=== PATIENT | female | born 2000 | race Hispanic/Latino ===

== ENCOUNTER 2022-05-28 07:40 | Inpatient (IN) | payer OTHER ==
[2022-05-28] MEDS ORDERED: Lidocaine 1% (PF) 30 ML VIAL SC PRN (08:33)
[2022-05-28] MEDS ORDERED: NS w/ Oxytocin 30 units 500 ML ONE (08:33)
[2022-05-28] MEDS ORDERED: Butorphanol Tartrate 1 MG/ML VIAL SLOW IVP PRN (08:33)
[2022-05-28] MEDS ORDERED: HYDROcodone/Acetaminophen 5/325 mg Tablet PO PRN ×2 (08:33)
[2022-05-28] MEDS ORDERED: Methylergonovine 0.2 MG/ML VIAL IM PRN ×2 (08:33→20:57)
[2022-05-28] MEDS ORDERED: Ibuprofen 800 MG TAB PO PRN (08:33)
[2022-05-28] MEDS ORDERED: Carboprost 250 MCG/ML AMP IM PRN (08:33)
[2022-05-28] MEDS ORDERED: Promethazine HCl 25 MG/ML VIAL IM PRN ×3 (08:33→17:18)
[2022-05-28] MEDS ORDERED: Penicillin G Potassium 5 MILL.UNITS VIAL ONE (08:33)
[2022-05-28] MEDS ORDERED: Tranexamic Acid 1,000 MG/10 ML VIAL IVP PRN (08:33)
[2022-05-28] MEDS ORDERED: Acetaminophen 500 MG TAB PO PRN (08:33)
[2022-05-28] MEDS ORDERED: Misoprostol 200 MCG TAB PR PRN ×2 (08:33→20:57)
[2022-05-28] MEDS ORDERED: Ondansetron PF 4 MG/2 ML Vial IVP PRN ×4 (08:33→20:57)
[2022-05-28] MEDS ORDERED: hydrALAZINE 20 MG/ML VIAL SLOW IVP PRN ×2 (08:33→20:57)
[2022-05-28] MEDS ORDERED: Sodium Chloride 0.9% 100 ML ONE (08:33)
[2022-05-28] MEDS ORDERED: Diphenoxylate HCl/Atropine Tablet PO PRN ×2 (08:33)
[2022-05-28] MEDS ORDERED: NS w/ Oxytocin 30 units 500 ML IV SCH ×2 (08:45→20:57)
[2022-05-28] MEDS ORDERED: Penicillin G Potassium 5 MILL.UNITS in Sodium Chloride 0.9% 100 ML IVPB SCH (08:45)
[2022-05-28] MEDS: Lactated Ringer's 1,000 ML IV SCH (08:50)
[2022-05-28 09:43] LABS: Hemoglobin 10.2 g/dL (12.0-15.5); Mean Corpuscular HGB CONC 31.8 g/dL (32.0-36.0); Mean Corpuscular Hemoglobin 24.3 pg (27.0-33.0); Mean Corpuscular Volume 76.4 fl (81.6-98.3); Mean Platelet Volume 13.2 fl (7.4-10.4); Platelet Count 201 10x3/uL (150-450); RBC Distribution Width 13.8 % (11.5-14.5); White Blood Cell (WBC) Count 10.7 10x3/uL (3.5-10.5)
[2022-05-28 10:03] LABS: Syphilis Antibody Nonreactive (Nonreactive); Syphilis Antibody Index 0.03 S/CO (<1.00 Non-Reactive)
[2022-05-28 10:05] LABS: HBSAg Index 0.14 S/CO (0-0.99); Hep B Surf Ag - L&D Non-Reactive S/CO (NonReactive)
[2022-05-28 10:31] VITALS: BMI 37.9
[2022-05-28] MEDS: Fentanyl 2 mcg/Bup 0.1% Cadd 100 ML ONE ×2 (13:14→13:37)
[2022-05-28] MEDS: Penicillin G 2.5 MILL.units 2.5 MILL.UNITS in Premix Bag 1 BAG IVPB SCH (13:16)
[2022-05-28] MEDS ORDERED: ePHEDrine Sulfate 50 MG/10 ML VIAL SLOW IVP PRN (13:22)
[2022-05-28] MEDS ORDERED: Acetaminophen 325 MG TAB PO PRN (13:22)
[2022-05-28] MEDS ORDERED: Lactated Ringer's 500 ML IV PRN (13:22)
[2022-05-28] MEDS ORDERED: Naloxone HCl 0.4 mg/ml Vial IVP PRN ×4 (13:22→17:18)
[2022-05-28] MEDS ORDERED: Moisturizing Cream (Eucerin) 113 GM JAR TOP PRN ×2 (13:22→17:18)
[2022-05-28] MEDS ORDERED: diphenhydrAMINE 50 MG/ML VIAL IVP PRN ×2 (13:22→17:18)
[2022-05-28] MEDS ORDERED: Fentanyl 2 mcg/Bupivacaine 0.1% Cassette 100 ML EPIDURAL SCH (13:30)
[2022-05-28] MEDS ORDERED: Communication Order-Pharmacy FS SCH ×2 (13:30→17:30)
[2022-05-28] MEDS ORDERED: Bupivacaine 0.25% HCL 30 ML VIAL ONE (13:50)
[2022-05-28] MEDS ORDERED: Famotidine/PF 20 mg/2ml Vial ONE (16:14)
[2022-05-28] MEDS ORDERED: CEFAZOLIN 2 GM VIAL ONE (16:14)
[2022-05-28] MEDS ORDERED: Azithromycin 500 MG VIAL ONE (16:15)
[2022-05-28] MEDS ORDERED: Fentanyl 100 MCG/2 ML VIAL ONE (16:22)
[2022-05-28 16:46] LABS: RapidComm Collect By CBN
[2022-05-28 16:49] LABS: RapidComm Collect By CBN; pH (Cord, venous) 7.264 (7.250-7.350)
[2022-05-28] MEDS ORDERED: Ketorolac Tromethamine 30 MG/ML VIAL IVP PRN (17:18)
[2022-05-28] MEDS ORDERED: Promethazine HCl 25 MG SUPP PR PRN (17:18)
[2022-05-28] MEDS ORDERED: Naloxone HCl 0.4 mg/ml Vial IV PRN (17:18)
[2022-05-28] MEDS ORDERED: Ketorolac Tromethamine 30 MG/ML VIAL ONE ×2 (19:02)
[2022-05-28] MEDS ORDERED: Lanolin Ointment 7 GM TUBE TOP PRN (20:57)
[2022-05-28] MEDS ORDERED: Simethicone Chewable 80 MG TAB PO PRN (20:57)
[2022-05-28] MEDS ORDERED: Boostrix 0.5 ML (Tdap) VIAL (>/=7 yrs of age) IM ONE (20:57)
[2022-05-29] MEDS: Ketorolac Tromethamine 30 MG/ML VIAL IVP SCH ×4 (00:05→17:38)
[2022-05-29] MEDS: Docusate 100 MG CAP PO SCH ×3 (03:08→21:31)
[2022-05-29] MEDS: Ferrous Sulfate 325 MG TAB PO SCH ×3 (03:08→21:31)
[2022-05-29 05:31] LABS: Hemoglobin 7.4 g/dL (12.0-15.5); Mean Corpuscular HGB CONC 31.8 g/dL (32.0-36.0); Mean Corpuscular Hemoglobin 24.3 pg (27.0-33.0); Mean Corpuscular Volume 76.6 fl (81.6-98.3); Mean Platelet Volume 12.7 fl (7.4-10.4); Platelet Count 130 10x3/uL (150-450); RBC Distribution Width 13.9 % (11.5-14.5); Red Blood Cell (RBC) Count 3.04 10x6/uL (3.90-5.03); White Blood Cell (WBC) Count 11.7 10x3/uL (3.5-10.5)
[2022-05-29] MEDS: Lactated Ringer's 1,000 ML IV SCH (06:14)
[2022-05-29] MEDS: Prenatal Vitamin 1 TAB PO SCH (08:41)
[2022-05-29] MEDS: Penicillin G 2.5 MILL.units 2.5 MILL.UNITS in Premix Bag 1 BAG IVPB SCH (09:09)
[2022-05-29] MEDS: HYDROcodone/Acetaminophen 5/325 mg Tablet PO PRN ×4 (09:23→22:03)
[2022-05-29] MEDS: diphenhydrAMINE 25 MG CAP PO PRN ×2 (09:23→13:29)
[2022-05-29] MEDS: Ibuprofen 800 MG TAB PO SCH (21:31)
[2022-05-30] MEDS: Ibuprofen 800 MG TAB PO SCH ×3 (05:15→21:27)
[2022-05-30] MEDS: Ferrous Sulfate 325 MG TAB PO SCH ×2 (09:03→20:12)
[2022-05-30] MEDS: Prenatal Vitamin 1 TAB PO SCH (09:04)
[2022-05-30] MEDS: Docusate 100 MG CAP PO SCH ×2 (09:04→20:12)
[2022-05-30] MEDS: HYDROcodone/Acetaminophen 5/325 mg Tablet PO PRN ×2 (12:00→20:12)
[2022-05-31] MEDS: Ibuprofen 800 MG TAB PO SCH ×2 (05:21→13:52)
[2022-05-31] MEDS: Docusate 100 MG CAP PO SCH (08:53)
[2022-05-31] MEDS: Prenatal Vitamin 1 TAB PO SCH (08:53)
[2022-05-31] MEDS: Ferrous Sulfate 325 MG TAB PO SCH (08:53)
[2022-05-31] MEDS: HYDROcodone/Acetaminophen 5/325 mg Tablet PO PRN (12:20)
[2022-05-31 16:04] VITALS: BP 133/74; TEMP 98.7
== END 2022-05-31 18:34 | disposition home or self-care (01) | DRG 788 ==
LOC: CSHLD/OP 07:40 → CSHLD 08:33 → CSHPP 19:47
PROVIDERS: ADMIT Family Medicine; ATTEND Family Medicine
PROC: 10D00Z1 Extraction of Products of Conception, Low, Open Approach (ICD-10-PCS; principal; 2022-05-28)
PROC: 10907ZC Drainage of Amniotic Fluid, Therapeutic from Products of Conception, Via Natural or Artificial Opening (ICD-10-PCS; 2022-05-28)
PROC: 10H07YZ Insertion of Other Device into Products of Conception, Via Natural or Artificial Opening (ICD-10-PCS; 2022-05-28)
PROC: 4A133R1 Monitoring of Arterial Saturation, Peripheral, Percutaneous Approach (ICD-10-PCS; 2022-05-28)
DX: O99.824 Streptococcus B carrier state complicating childbirth (principal); Z3A.40 40 weeks gestation of pregnancy; Z37.0 Single live birth; Z79.899 Other long term (current) drug therapy; O76 Abnormality in fetal heart rate and rhythm complicating labor and delivery; O48.0 Post-term pregnancy; O62.1 Secondary uterine inertia; O32.8XX0 Maternal care for other malpresentation of fetus, not applicable or unspecified; O36.63X0 Maternal care for excessive fetal growth, third trimester, not applicable or unspecified; O62.2 Other uterine inertia
CPT/HCPCS: 36415; 51702; 82805; 85027; 86780; 86850; 86900; 86901; 87340; 99285; J1200; J1885; J2540; J2590; J3490; J7120; S0020